=== PATIENT | female | born 1985 | race Caucasian/White ===

== ENCOUNTER 2018-04-24 02:30 | Emergency (ER) | payer BC ==
[~2018-04-24] VITALS: Ht 188 cm; Wt 83.9 kg
--- NOTE | 2018-04-24 02:41 | NUR ---
Pt ambulates to ER with c/o chest pressure that feels like a dull ache radiating to her back & states she was having palpitations that come and go while about to go to sleep around 2200 yesterday night. Pt placed on monitor. SA02 100% room air. Denies nausea/vomiting. Pt's at bedside.
[2018-04-24 03:14] LABS: BASOPHILS # (AUTO) 0.1 K/uL (0.0-8.0); BASOPHILS % (AUTO) 0.8 % (0.0-2.0); EOSINOPHILS # (AUTO) 0.2 K/uL (0.0-0.7); EOSINOPHILS % (AUTO) 3.6 % (0.0-7.0); HEMATOCRIT 36.2 % (31.2-41.9); HEMOGLOBIN 12.3 g/dL (10.9-14.3); LYMPHOCYTES # (AUTO) 1.8 K/uL (20.0-40.0); MEAN CORPUSCULAR HEMOGLOBIN 31.8 uug (24.7-32.8); MEAN CORPUSCULAR HGB CONC 34 g/dL (32.3-35.6); MEAN CORPUSCULAR VOLUME 93.9 fL (75.5-95.3); MONOCYTES # (AUTO) 0.6 K/uL (2.0-10.0); MONOCYTES % (AUTO) 8.6 % (0.0-11.0); NEUTROPHILS # (AUTO) 4.3 K/uL (1.8-8.9); PLATELET COUNT (AUTO) 201 K/uL (179-408); RED BLOOD CELL COUNT(AUTO) 3.85 MIL/uL (3.63-4.92)
[2018-04-24 03:34] LABS: BILIRUBIN,DIRECT 0.2 mg/dL (0.0-0.2); BILIRUBIN,TOTAL 0.7 mg/dL (0.2-1.0); CREATININE 0.8 mg/dL (0.6-1.3); POTASSIUM 3.7 mmol/L (3.5-5.1); TOTAL PROTEIN, SERUM 6.5 g/dL (6.4-8.2)
[2018-04-24 03:42] LABS: *URINE HCG, QUAL NEGATIVE (NEGATIVE)
--- NOTE | 2018-04-24 05:51 | NUR ---
Lab at bedside for 2nd troponin blood draw.
--- NOTE | 2018-04-24 06:24 | NUR ---
Patient discharged to home in stable conditon. Written and verbal after care instructions given. Patient verbalizes understanding of instructions. Pt ambulated out of ER in steady gait with . All belongings with pt. VSS. NAD noted.
[2018-04-24 06:25] VITALS: BP 121/69
== END 2018-04-24 06:26 | disposition home or self-care (01) ==
LOC: ER 02:36
DX: I49.3 Ventricular premature depolarization (principal); E03.9 Hypothyroidism, unspecified; R07.2 Precordial pain; J45.909 Unspecified asthma, uncomplicated
CPT/HCPCS: 36415; 70030-TC; 71045; 84443; 84703; 85025; 85730; 93005; A4663